=== PATIENT | female | born 2000 | race Caucasian/White ===

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

== ENCOUNTER 2020-03-24 10:22 | Emergency (ER) | payer MEDICAID ==
[~2020-03-24] VITALS: Ht 162.6 cm; Wt 81.7 kg
--- OUTSIDE RECORDS SUMMARY | ~2020-03-24 | XMS | Encounter Summary ---
Demographics + + + | Address | [address] | | | [address] | | | [place] [address] | + + + | Home Phone | | + + + | Preferred Language | Unknown | + + + | Marital Status | Single | + + + | Gnosticist Affiliation | Unknown | + + + | Race | White | + + + | Ethnic Group | Not or | + + + Author + + + | Author | [facility] | + + + | Organization | [facility] | + + + | Address | Unknown | + + + | Phone | Unavailable | + + + Support + + + + + | Name | Relationship | Address | Phone | + + + + + | Jeanine Stallworth | ECON | [place] [address] | | | | | [place] [address] | | + + + + + Care Team Providers + +------+ + | Care Mobile Developer Name | Role | Phone | + +------+ + | Sophie See MD | PCP | | + +------+ + Reason for Visit + + + | Reason | Comments | + + + | New patient | | | consultation | | + + + | Examination Of Skin | pt here for a changing mole on her neck | + + + Encounter Details +--------+---------+ + + + | Date | Type | Department | Care Team | Description | +--------+---------+ + + + | 01/19/ | Office | Dermatology | Sergio Perales MD | Congenital nevus | | 2015 | Visit | Pediatrics at [facility] | [address] | (Primary Dx) | | | | [address] | [place], [place] | | | | | [place] | [address] | | | | | [facility], | [phone] | | | | | [address] [place] [address] | | | | | | [place], [place] | | | | | | [address] | | | | | | [phone] | | | +--------+---------+ + + + Social History + +-------+ +--------+------+ | Tobacco Use | Types | Packs/Day | Years | Date | | | | | Used | | + +-------+ +--------+------+ | Never Assessed | | | | | + +-------+ +--------+------+ + + + | Sex Assigned at | Date Recorded | | | | + + + | Not on file | | + + + + + + + | Job Start Date | Occupation | Industry | + + + + | Not on file | Not on file | Not on file | + + + + + + + + | Travel History | Travel Start | Travel End | + + + + + + | No recent travel history available. | + + documented as of this encounter Patient Instructions Patient Instructions Genaro Limon MD - 01/19/2015 2:20 PM PDTDry skin care: Bathing can be beneficial (baths are better than showers to allow water to soak back into t he skin), if harsh cleansers are avoided and emollient such as a cream or ointment type of m oisturizer is applied to the skin immediately afterward to seal in the moisture. [place], fra grance-free products are in general preferred to minimize risk of irritation and/or developm ent of allergic contact dermatitis. Examples of such cleansers include:cetaphil cleanser, V anicream, Dove bar and plain glycerin bar. Examples of moisturizers include: plain white pe trolatum (Vaseline ointment), Vanicream, Cerave cream, Cetaphil cream, Aveeno cream, Aquapho r, reich butter with jojoba oil, coconut oil, sunflower seed oil. Sun protection for kids: Children are recommended to avoid the sun with physical cover-ups such as umbrellas, hats, blankets, long-sleeves, hats and avoiding being outdoors for extended activity between 10 am and 4 pm as possible, as first line against damage from UV. Hats with broad-brims or bonnets, and chin straps are most beneficial and practical. Examp les of brands: Alf, Friday, www.Glopho. Remember that the sun is "stongest" in terms of UVB in mid/late February, coincident with summe r solice, so be extra careful from early January until May, regardless of temperature an d/or cloud cover. Rash guards/ swim shirts are highly recommended for swimming. Sunscreens can be added to the above measures to any exposed skin, per the [place] [employer] and Centers for Disease Control and Prevention. Chemical sunscreens can be i rritating, especially to young children or/or those with sensitive skin/eczema. Look for zi nc oxide and titanium dioxide as the active ingredients with SPF 30 or greater. For childre n 2 years of age and younger, the only active sunscreen ingredients should be zinc oxide and titanium dioxide. Reapply sunscreen to skin every 2 hours while outside, more frequently a fter sweating and always after swimming. Examples: Neutrogena's "For Baby Faces" or "Sensitive Skin", Aveeno "Active Naturals", (a [employer] drugstore, most citizenmade), Vanicream (on-lineXercise4less), Lizbet sunscreen ([employer]), ThinkBaby. Older children may prefer thinner formulations in sales advisor lotions or gels. Be sure to look for broad spectrum UVA/UVB coverage, again with SPF 30 or greater. Example: Neutrogena's "Dry Touch" line. If you have any questions regarding the care of your child: Please call our clinic at . Leave a message that includes best times and dat ne number to reach you, and one of our medical assistants will contact you within the next . If you need refills of medication: Please contact your pharmacy directly. documented in this encounter Progress Notes Sergio Perales MD - 01/19/2015 9:06 PM PDTI saw and evaluated the patient. I agree with debbie arias findings and the plan of care as documented in the resident s note. Sergio Perales MD DERMATOLOGY PEDIATRICS AT [address] Mailcode: Op06 [place] [address] Genaro Kay MD - 01/19/2015 2:18 PM PDT PEDIATRIC DERMATOLOGY NEW PATIENT VISIT, HISTORY AND PHYSICAL CHIEF COMPLAINT: skin lesion HISTORY OF PRESENT ILLNESS: Iraida Stallworth is a 14 y.o. female who presents for evaluation of a pigmented skin lesio n on L anterior neck. Notes it has been present since . In puberty has become slightly darker and more raised. Occasionally itchy and will rub against her necklaces and shirt hussain ars. No bleeding or pain. No indoor tanning. No family history of melanoma. No past personal history of skin cancer or melanoma. No other skin concerns today. The patient's dermatology intake form was reviewed, signed, and dated. Her relevant PMH, F H, and SH includes: PAST MEDICAL HISTORY: No past medical history on file. FAMILY HISTORY: Relevant for: asthma and seasonal allergies SOCIAL HISTORY: Lives at home with family. MEDICATIONS: No current outpatient prescriptions on file prior to visit. No current facility-administered medications on file prior to visit. ALLERGIES: No Known Allergies REVIEW OF SYSTEMS: Please see HPI and PMH, otherwise well, and has no further skin complaints. PHYSICAL EXAMINATION: There were no vitals taken for this visit. Well-developed, well-nourished female in no acute distress. Awake, alert. A complete skin examination was performed including the scalp, face, eyelids, ears, lips, n yue, chest, back, abdomen, buttocks, bilateral arms and legs, bilateral hands and feet, and nails. Findings were within normal limits except for the following: -L anterior neck with 4 mm papillomatous dark brown papule. Non concerning dermatoscopic e xam. ASSESSMENT AND PLAN: 1) Small Congenital nevus, L anterior neck. Itchy and rubs against necklaces. Not interest ed in removal at this time. -will decide by April if she desires excision and will call; they have to be in [facility] in June anyway and could schedule for that time RTC: SOUMYA Limon MD DERMATOLOGY PEDIATRICS AT [address] Mail[address]: [address] [place] [address] documented in this encou nter Plan of Treatment Not on filedocumented as of this encounter Visit Diagnoses + + | Diagnosis | + + | Congenital nevus - Primary Benign neoplasm of skin, site unspecified | + + documented in this encounter
--- OUTSIDE RECORDS SUMMARY | ~2020-03-24 | XMS | Encounter Summary ---
Demographics + + + | Address | [address] | | | [address] | | | [place] [address] | + + + | Home Phone | | + + + | Preferred Language | Unknown | + + + | Marital Status | Single | + + + | Tenriism Affiliation | Unknown | + + + | Race | White | + + + | Ethnic Group | Not or | + + + Author + + + | Author | [facility] | + + + | Organization | [facility] | + + + | Address | Unknown | + + + | Phone | Unavailable | + + + Support + + + + + | Name | Relationship | Address | Phone | + + + + + | Jeanine Stallworth | ECON | [address] [address] | | | | | [place] [address] | | + + + + + Care Team Providers + +------+ + | Care Marketing Support Coordinator Name | Role | Phone | + [...] | 2015 | Visit | Pediatrics at [facility] | [address] | (Primary Dx) | | | | [address] | [place], [place] | | | | | [place] | [address] | | | | | [facility], | [phone] | | | | | [address] [place] [address] | | | | | | [place], [place] | | | | | | [address] | | | | | | [phone] | | | +--------+---------+ + + + [...] immediately afterward to seal in the moisture. [place], fra grance-free products are in general preferred [...] practical. Examp les of brands: Alf, Friday, www.NeoDiagnostix. Remember that the sun is "stongest" in terms of UVB in mid/late February, coincident with summe r solice, so be extra careful from early January until May, regardless of temperature an d/or cloud cover. Rash guards/ swim shirts are highly recommended for swimming. Sunscreens can be added to the above measures to any exposed skin, per the [place] [employer]s and Centers for Disease [...] or "Sensitive Skin", Aveeno "Active Naturals", (a [employer] drugstore, most [employer]), Vanicream (on-lineIssue), Lizbet sunscreen ([employer]), ThinkBaby. Older children may prefer thinner formulations in pastry baker lotions or gels. Be sure to look [...] note. Sergio Perales MD DERMATOLOGY PEDIATRICS AT [address] Mailcode: [address] [place] [address] Genaro Kay MD - 01/19/2015 [...] will call; they have to be in [facility] in June anyway and could schedule for that time RTC: SOUMYA Limon MD DERMATOLOGY PEDIATRICS AT [address] Mailcode: [address] [place] [address] documented in this encou nter Plan of Treatment Not on filedocumented as of this encounter Visit Diagnoses + + | Diagnosis | + + | Congenital nevus - Primary Benign neoplasm of skin, site unspecified | + + documented in this encounter
--- OUTSIDE RECORDS SUMMARY | ~2020-03-24 | XMS | Clinical Summary ---
Demographics + + + | Address | [address] | | | [address] | | | [place] [address] | + + + | Home Phone | | + + + | Preferred Language | Unknown | + + + | Marital Status | Single | + + + | Holiness Affiliation | Unknown | + + + | Race | White | + + + | Ethnic Group | Not or | + + + Author + + + | Author | [facility] | + + + | Organization | [facility] | + + + | Address | Unknown | + + + | Phone | Unavailable | + + + Support + + + + + | Name | Relationship | Address | Phone | + + + + + | Jeanine Stallworth | ECON | [address] [address] | | | | | [place] [address] | | + + + + + Care Team Providers + +------+ + | Care Staff Radiation Therapist Name | Role | Phone | + +------+ + | Sophie See MD | PCP | | + +------+ + Source Comments WINSTON is fully live on both [facility] and [facility] Allergies No Known Allergies Medications No known medications Active Problems + + + | Problem | Noted Date | + + + | Congenital nevus | 01/19/2015 | + + + Social History + +-------+ [...] recent travel history available. | + + Last Filed Vital Signs Not on file Plan of Treatment + + + + + | Health Maintenance | Due Date | Last Done | Comments | + + + + + | Influenza (Flu) | | | | | vaccination (#1) | 9 | | | + + + + + | Pneumococcal | Aged Out | | No longer eligible | | vaccination | | | based on patient's | | | | | age to complete this | | | | | topic | + + + + + Results Not on filefrom Last 3 Months Insurance + +--------+ +--------+-------+---------+--------+ | Payer | Benefi | Subscriber | Effect | Phone | Address | Type | | | t Plan | ID | [place] | | | | | | / | | Dates | | | | | | Group | | | | | | + +--------+ +--------+-------+---------+--------+ | OCCUPATIONAL HEALTH PROFESSIONAL MEDICAID | OCCUPATIONAL HEALTH PROFESSIONAL | xxxxxxxx | 03/15/20 | | | Medica | | | [place] | | 14-Pre | | | id | | | [place] | | sent | | | | + +--------+ +--------+-------+---------+--------+ + +--------+ +--------+ + + | Guarantor Name | Accoun | Relation to | Date | Phone | Billing Address | | | t Type | Patient | of | | | | | | | | | | + +--------+ +--------+ + + | JEANINE STALLWORTH | Person | Parent [birth year] | [address] | | | al/Fam | | 1970 | [phone] | | | emily | | | 5 (Home) | [place] [address] | + +--------+ +--------+ + +"
--- OUTSIDE RECORDS SUMMARY | ~2020-03-24 | XMS | Clinical Summary ---
Demographics + + + | Address | [address] | | | [address] | | | [place] [address] | + + + | Home Phone | | + + + | Preferred Language | Unknown | + + + | Marital Status | Single | + + + | Episcopal Affiliation | Unknown | + + + | Race | White | + + + | Ethnic Group | Not or | + + + Author + + + | Author | [facility] | + + + | Organization | [facility] | + + + | Address | Unknown | + + + | Phone | Unavailable | + + + Support + + + + + | Name | Relationship | Address | Phone | + + + + + | Jeanine Stallworth | ECON | [address] | | | | | [place] [address] | | + + + + + Care Team Providers + +------+ + | Care Continuing Education Specialist Name | Role | Phone | + +------+ + | Sophie See MD | PCP | | + +------+ + Source Comments WINSTON is fully live on both [facility] and [facility] InPatient.[facility] Allergies No Known Allergies Medications No known [...] | | | + +--------+ +--------+-------+---------+--------+ | SUSTAINABLE COMMUNITIES DESIGNER MEDICAID | SUSTAINABLE COMMUNITIES DESIGNER | xxxxxxxx | 03/15/20 | | | [...] | | [address] (Home) | [place] [address] | + +--------+ +--------+ + +"
[~2020-03-24 10:22] MED LIST: PRENATABS RX T1 EACH PO; TUMS200 MG PO; TYLENOL325 MG PO
[2020-03-24] MEDS ORDERED: IBU400 MG (10:39)
== END 2020-03-24 11:04 | disposition home or self-care (01) ==
LOC: ED 10:22
DX: S16.1XXA Strain of muscle, fascia and tendon at neck level, initial encounter (principal); X58.XXXA Exposure to other specified factors, initial encounter
CPT/HCPCS: 96372; 99283; J1885

== ENCOUNTER 2021-06-26 00:04 | Inpatient (IN) | payer OTHER ==
[~2021-06-26] VITALS: Ht 160 cm; Wt 92.5 kg
[~2021-06-26 00:04] MED LIST changes: +IBU400 MG
--- NOTE | 2021-06-27 08:55 | PR ---
[facility] [address] [facility] [address] [place], [place] [address] Signed PP Progress Notes Datetime Report Generated by CPN: 06/27/2021 08:55 SUBJECTIVE: [id number] Pain: Within Normal Limits Vital Signs: [id number] Vital Signs: Reviewed; Within Normal Limits Cardiovascular: Not Done Respiratory: Not Done Abdomen/Uterus: Abnormal Lochia: Normal Vulva/Perineum: Not Done Breasts: Not Done CVA Tenderness: Not Done Extremities: Normal Incision: Not Applicable Progress: Not Applicable Exam Comments: Fundus firm, NT @ U-3 H/H 9.3/28.4, WBC 16.7, plat 249k IMPRESSION/PLAN/PROCEDURES: [id number] Impression: Normal Progression Plan: Continue Present Management Other Plans: continue observation of baby Procedures: None Progress Notes: Doing well but given the baby needing CPAP yesterday I think it reasonable to continue observation with D/C home tomorrow. Pt is amenable to this. Signing Physician: Michell Borrero MD Copies: ~ *Electronically Signed* 06/27/21 0855 MICHELL BORRERO MD PATIENT NAME: PARKER KAUR PROGRESS NOTE DATE OF : 98 PHYSICIAN: MICHELL BORRERO MD RPT #: [id number] REPORT IS CONFIDENTIAL AND NOT TO BE RELEASED WITHOUT AUTHORIZATION
--- NOTE | 2021-06-28 07:37 | PR ---
[facility] [address] [facility] [place], [place] [address] Signed PP Progress Notes Datetime Report Generated by CPN: 06/28/2021 07:37 SUBJECTIVE: [id number] Pain: Within Normal Limits Nausea/Vomiting: Denies Vital Signs: [id number] Vital Signs: Reviewed; Within Normal Limits Cardiovascular: Not Done Respiratory: Not Done Abdomen/Uterus: Abnormal Lochia: Normal Vulva/Perineum: Not Done Breasts: Not Done CVA Tenderness: Not Done Extremities: Normal Incision: Not Applicable Progress: Not Applicable Exam Comments: Fundus firm, NT @ U-3 IMPRESSION/PLAN/PROCEDURES: [id number] Impression: Normal Progression Plan: Discharge Other Plans: continue observation of baby Procedures: None Progress Notes: Doing well. She is ready for D/C. Signing Physician: Michell Borrero MD Copies: ~ *Electronically Signed* 06/28/21 0737 MICHELL BORRERO MD PATIENT NAME: PARKER KAUR PROGRESS NOTE DATE OF : 98 PHYSICIAN: MICHELL BORRERO MD RPT #: [id number] REPORT IS CONFIDENTIAL AND NOT TO BE RELEASED WITHOUT AUTHORIZATION
== END 2021-06-28 10:43 | disposition home or self-care (01) | DRG 806 ==
LOC: FBC 00:04
PROVIDERS: ADMIT Obstetrics & Gynecology; ATTEND Obstetrics & Gynecology
PROC: 10E0XZZ Delivery of Products of Conception, External Approach (ICD-10-PCS; principal; 2021-06-26)
PROC: 00HU33Z Insertion of Infusion Device into Spinal Canal, Percutaneous Approach (ICD-10-PCS; 2021-06-26)
PROC: 3E0R3BZ Introduction of Anesthetic Agent into Spinal Canal, Percutaneous Approach (ICD-10-PCS; 2021-06-26)
DX: O24.420 Gestational diabetes mellitus in childbirth, diet controlled (principal); D62 Acute posthemorrhagic anemia; Z37.0 Single live birth; Z3A.39 39 weeks gestation of pregnancy; Z67.40 Type O blood, Rh positive; Z20.822 Contact with and (suspected) exposure to COVID-19
CPT/HCPCS: 01960; 82803; 85027; 94660; A9270; J2590; J2795; J3010

== ENCOUNTER 2024-05-17 06:00 | Inpatient (IN) | payer OTHER ==
[~2024-05-17 06:00] MED LIST changes: +CALCIUM CARBONATE 500 MG CHEW PO PRN; +LACTATED RINGER'S 1,000 ML IV SCH; +MAGNESIUM HYDROXIDE/AL HYDROX 30 ML CUP PO PRN; +SALINE LOCK FLUSH 5 ML SYR IV SCH; +miSOPROStoL 25 MCG TAB PV SCH
[2024-05-17] MEDS ORDERED: OXYTOCIN/DEXTROSE 5% 20 UNITS/100 ML BAG IV SCH (06:15)
[2024-05-17] MEDS ORDERED: LIDOCAINE 2% VISCOUS 6 ML SYR TOP ONE ×3 (06:15→19:15)
[2024-05-17] MEDS ORDERED: miSOPROStoL 25 MCG TAB PV SCH (06:15)
[2024-05-17] MEDS ORDERED: LACTATED RINGER'S 1,000 ML IV PRN (06:30)
[2024-05-17 06:57] LABS: AMPHETAMINES, URINE NEGATIVE (NEGATIVE); BARBITURATES, URINE NEGATIVE (NEGATIVE); BENZODIAZEPINE, URINE NEGATIVE (NEGATIVE); BUPRENORPHINE, URINE NEGATIVE (NEGATIVE); CANNABINOID, URINE NEGATIVE (NEGATIVE); COCAINE, URINE NEGATIVE (NEGATIVE); ECSTASY, URINE NEGATIVE (NEGATIVE); FENTANYL, URINE NEGATIVE (NEGATIVE); METHADONE, URINE NEGATIVE (NEGATIVE); OPIATES, URINE NEGATIVE (NEGATIVE); OXYCODONE, URINE NEGATIVE (NEGATIVE); PHENCYCLIDINE, URINE NEGATIVE (NEGATIVE)
[2024-05-17 07:03] LABS: HEMOGLOBIN 11.4 g/dL (12.0-18.0); MCH 27.8 (27-36); MCHC 32.4 g/dl (30-36); MCV 85.7 fl (81-99); RBC 4.09 M/ul (4.3-5.7); RDW 16.1 (10.5-15.0)
[2024-05-17 07:37] LABS: ABO O; RH POSITIVE
[2024-05-17 07:38] LABS: ANTIBODY SCREEN NEGATIVE
[2024-05-17] MEDS ORDERED: ROPIVACAINE 0.2% 200 ML BAG ONE (09:04)
[2024-05-17] MEDS ORDERED: LACTATED RINGER'S 500 ML IV PRN (09:45)
[2024-05-17] MEDS ORDERED: ROPIVACAINE 0.2% 200 ML BAG EPIDURAL SCH (09:45)
[2024-05-17] MEDS ORDERED: ePHEDrine sulfate 5 MG/ML SYRINGE IV PRN (09:45)
[2024-05-17] MEDS ORDERED: LACTATED RINGER'S 2,000 ML IV ONE (09:45)
[2024-05-17] MEDS ORDERED: OXYTOCIN/0.9 % SODIUM CHLORIDE 500 ML IV ONE (12:15)
--- NOTE | 2024-05-17 12:24 | PR ---
[facility] [address] [facility] [place], [place] [address] Signed Progress Notes IP Datetime Report Generated by TEODORO: 05/17/2024 12:24 PROGRESS NOTES: [id number] Impression: Reassuring Heart Rate Procedures: Intrauterine Pressure Catheter; Sterile Vag Exam Plan: Augmentation VITAL SIGNS: [id number] Vital Signs: Reviewed; Within Normal Limits EXAM: [id number] Dilatation: 3.0 Effacement: 75 Station: -2 Contractions: q 2 to 6 min MEMBRANES: [id number] Comments: Min change (no longer as post). Will place IUPC and likely begin augmentation. FETUS A: [id number] FHR Baseline: 140 Variability: Moderate 6-25bpm Accelerations: 15X15 Decelerations: None FHR Category: Category I Presentation: Vertex Comments on Fetus A: overall reassuring FETUS B: [id number] Signing Physician: Michell Borrero MD Copies: ~ *Electronically Signed* 05/17/24 1224 MICHELL BORRERO MD PATIENT NAME: NATASHAPARKERLINDA AYALA PROGRESS NOTE DATE OF : 98 PHYSICIAN: MICHELL BORRERO MD RPT #: [id number] REPORT IS CONFIDENTIAL AND NOT TO BE RELEASED WITHOUT AUTHORIZATION
[2024-05-17] MEDS ORDERED: LIDOCAINE HCL 2% 5 ML SDV ONE (13:56)
[2024-05-17] MEDS ORDERED: dexmedeTOMIDine HCl 200 MCG/2 ML VIAL ONE (13:56)
[2024-05-17] MEDS ORDERED: ePHEDrine KIT FOR FBC IV ONE (14:53)
--- NOTE | 2024-05-17 16:46 | PR ---
[facility] [address] [place], [place] [address] Signed Progress Notes IP Datetime Report Generated by TEODORO: 05/17/2024 16:46 PROGRESS NOTES: [id number] Impression: Reassuring Heart Rate Procedures: Intrauterine Pressure Catheter; Sterile Vag Exam Plan: Anesthesia Consult Other Plans: replace IUPC, position changes VITAL SIGNS: B1807057 Vital Signs: Reviewed; Within Normal Limits EXAM: [id number] Dilatation: 4.5 Effacement: 90 Station: -2 Contractions: not picking up well MEMBRANES: [id number] Comments: Not very comfortable currently with low pelvic and back pain. Ctx not picking up well either. Will replace IUPC now and ask anesthesia to reevaluate her pain management. Will also try different positions for her labor. FETUS A: [id number] FHR Baseline: 140 Variability: Moderate 6-25bpm Accelerations: 15X15 Decelerations: Early; Variable FHR Category: Category II Presentation: Vertex Comments on Fetus A: overall reassuring FETUS B: [id number] Signing Physician: Michell Borrero MD Copies: ~ *Electronically Signed* 05/17/24 1646 MICHELL BORRERO MD PATIENT NAME: PARKER KAUR PROGRESS NOTE DATE OF : 98 PHYSICIAN: MICHELL BORRERO MD RPT #: [id number] REPORT IS CONFIDENTIAL AND NOT TO BE RELEASED WITHOUT AUTHORIZATION
--- NOTE | 2024-05-17 17:19 | PR ---
[facility] [address] [facility] [place], [place] [address] Signed Progress Notes IP Datetime Report Generated by TEODORO: 05/17/2024 17:19 PROGRESS NOTES: [id number] Impression: Normal Progression of Labor Procedures: Scalp Electrode; Sterile Vag Exam Plan: Continue Present Management Other Plans: replace IUPC, position changes VITAL SIGNS: [id number] Vital Signs: Reviewed; Within Normal Limits EXAM: [id number] Dilatation: 7.0 Effacement: 90 Station: -2 Contractions: not picking up well MEMBRANES: [id number] Comments: Progressing well with the change in position. Anesthesia here as well. IV replaced as came out during her repositioning. Will continue close observation. FETUS A: [id number] FHR Baseline: 140 Variability: Minimal - >Undetectable to <=5bpm Accelerations: 15X15 Decelerations: None FHR Category: Category II Presentation: Vertex Comments on Fetus A: overall reassuring FETUS B: [id number] Signing Physician: Michell Borrero MD Copies: ~ *Electronically Signed* 05/17/24 1719 MICHELL BORRERO MD PATIENT NAME: PARKER KAUR PROGRESS NOTE DATE OF : 98 PHYSICIAN: MICHELL BORRERO MD RPT #: [id number] REPORT IS CONFIDENTIAL AND NOT TO BE RELEASED WITHOUT AUTHORIZATION
--- NOTE | 2024-05-17 17:50 | PR ---
[facility] [address] [facility] [place], [place] [address] Signed Progress Notes IP Datetime Report Generated by TEODORO: 05/17/2024 17:50 PROGRESS NOTES: [id number] Impression: Normal Progression of Labor Procedures: Sterile Vag Exam Plan: Continue Present Management Other Plans: replace IUPC, position changes VITAL SIGNS: [id number] Vital Signs: Reviewed; Within Normal Limits EXAM: [id number] Dilatation: 8.0 Effacement: 90 Station: -2 Contractions: q 1 to 2 min MEMBRANES: [id number] Comments: Much more comfortable with some progress. Will change positions. Will decrease pit again as well. FETUS A: [id number] FHR Baseline: 140 Variability: Minimal - >Undetectable to <=5bpm Accelerations: 15X15 Decelerations: Early FHR Category: Category II Presentation: Vertex Comments on Fetus A: overall reassuring FETUS B: [id number] Signing Physician: Michell Borrero MD Copies: ~ *Electronically Signed* 05/17/24 8328 MICHELL BORRERO MD PATIENT NAME: PARKER KAUR JAMIE PROGRESS NOTE DATE OF : [birth year] PHYSICIAN: MICHELL BORRERO MD RPT #: [id number] REPORT IS CONFIDENTIAL AND NOT TO BE RELEASED WITHOUT AUTHORIZATION
[2024-05-17] MEDS ORDERED: TRANEXAMIC ACID IN NACL,ISO-OS 0 ML IV ONE (18:41)
[2024-05-17] MEDS ORDERED: OXYCODONE HCL 5 MG TAB PO PRN (19:15)
[2024-05-17] MEDS ORDERED: CALCIUM CARBONATE 500 MG CHEW PO PRN (19:15)
[2024-05-17] MEDS ORDERED: BENZOCAINE 60 ML AEROSOL TOP PRN (19:15)
[2024-05-17] MEDS ORDERED: ACETAMINOPHEN 325 MG TAB PO PRN (19:15)
[2024-05-17] MEDS ORDERED: MAGNESIUM HYDROXIDE 30 ML UDC PO PRN (19:15)
[2024-05-17] MEDS ORDERED: MAGNESIUM HYDROXIDE/AL HYDROX 30 ML CUP PO PRN (19:15)
[2024-05-17] MEDS ORDERED: miSOPROStoL 200 MCG TAB PO ONE (19:15)
[2024-05-17] MEDS ORDERED: HYDROCORTISONE ACETATE 25 MG SUPP PR PRN (19:15)
[2024-05-17] MEDS ORDERED: HYDROCODONE/ACETA 5/325 TAB PO PRN (19:15)
[2024-05-17] MEDS ORDERED: OXYCODONE/APAP 5/325 TAB PO PRN (19:15)
[2024-05-17] MEDS ORDERED: ondansetron HCL 4 MG/2 ML VIAL IV ONE (19:15)
[2024-05-17] MEDS ORDERED: DIPHENOXYLATE/ATROPINE 1 EA TAB PO ONE (19:15)
[2024-05-17] MEDS ORDERED: WITCH HAZEL/GLYCERIN 1 EA PAD TOP PRN (19:15)
[2024-05-17] MEDS ORDERED: IBUPROFEN 600 MG TAB PO PRN (19:15)
[2024-05-17] MEDS ORDERED: OXYTOCIN/0.9 % SODIUM CHLORIDE 500 ML IV SCH (19:15)
[2024-05-17] MEDS ORDERED: SENNOSIDES/DOCUSATE 1 EA TAB PO SCH (21:00)
[2024-05-17 21:10] LABS: BASOPHILS 0.1 % (0-2); HEMATOCRIT 36.5 % (35.0-50.0); HEMOGLOBIN 11.9 g/dL (12.0-18.0); LYMPHOCYTES 3.9 % (24-44); MCH 27.7 (27-36); MCHC 32.6 g/dl (30-36); MONOCYTES 3.1 % (0-12); NEUTROPHILS 92.9 % (39-80); PLATELET COUNT 335 K/uL (140-440); RBC 4.29 M/ul (4.3-5.7)
[2024-05-18 05:40] LABS: HEMOGLOBIN 10.8 g/dL (12.0-18.0); MCH 27.7 (27-36); MCHC 32.6 g/dl (30-36); PLATELET COUNT 311 K/uL (140-440); RBC 3.89 M/ul (4.3-5.7); RDW 16.2 (10.5-15.0)
--- NOTE | 2024-05-18 07:15 | PR ---
[facility] [address] [facility] [place], [place] [address] Signed PP Progress Notes Datetime Report Generated by CPN: 05/18/2024 07:14 SUBJECTIVE: [id number] Pain: Within Normal Limits Pain Comments: Feels much better this morning. Nausea/Vomiting: Denies Vital Signs: [id number] Vital Signs: Reviewed; Within Normal Limits Cardiovascular: Not Done Respiratory: Not Done Abdomen/Uterus: Abnormal Lochia: Normal Vulva/Perineum: Not Done Breasts: Not Done CVA Tenderness: Not Done Extremities: Normal Incision: Not Applicable Progress: Not Applicable Exam Comments: Fundus firm, NT @ U-1. last pm 11.9/36.5, WBC 24.7, plat 335k this am 10.8/33, WBC 21.1, 311k IMPRESSION/PLAN/PROCEDURES: [id number] Impression: Normal Progression Other Impression: temp increased last pm Plan: Continue Present Management Procedures: None Progress Notes: Doing well this am. She had an elevated temp last pm which has since resolved though WBC is elevated. The temp may be secondary to the [employer] rec'd pp. She has no other localizing symptoms. Will continue observation today. Signing Physician: Michell Borrero MD Copies: ~ *Electronically Signed* 05/18/24 0714 MICHELL BORRERO MD PATIENT NAME: PARKER KAUR PROGRESS NOTE DATE OF : [birth year] PHYSICIAN: MICHELL BORRERO MD RPT #: [id number] REPORT IS CONFIDENTIAL AND NOT TO BE RELEASED WITHOUT AUTHORIZATION
[2024-05-19 05:41] LABS: BASOPHILS 1.7 % (0-2); EOSINOPHILS 1.4 % (0-6); HEMATOCRIT 31.3 % (35.0-50.0); HEMOGLOBIN 10.2 g/dL (12.0-18.0); LYMPHOCYTES 33.6 % (24-44); MCH 27.8 (27-36); MCHC 32.7 g/dl (30-36); MCV 85.2 fl (81-99); MONOCYTES 5.3 % (0-12); PLATELET COUNT 272 K/uL (140-440); RBC 3.67 M/ul (4.3-5.7)
--- NOTE | 2024-05-19 08:36 | PR ---
[facility] [address] [facility] [place], [place] [address] Signed PP Progress Notes Datetime Report Generated by CPN: 05/19/2024 08:36 SUBJECTIVE: [id number] Pain: Within Normal Limits Pain Comments: Feels great Nausea/Vomiting: Denies Vital Signs: [id number] Vital Signs: Reviewed; Within Normal Limits Cardiovascular: Not Done Respiratory: Not Done Abdomen/Uterus: Abnormal Lochia: Normal Vulva/Perineum: Not Done Breasts: Not Done CVA Tenderness: Not Done Extremities: Normal Incision: Not Applicable Progress: Not Applicable Exam Comments: Fundus firm, NT @ U-2. H/H 10.2/31.3, WBC 11.1, plat 272k IMPRESSION/PLAN/PROCEDURES: [id number] Impression: Normal Progression Other Impression: WBC down to normal range Plan: Discharge Procedures: None Progress Notes: Doing well. She is ready for D/C. Signing Physician: Michell Borrero MD Copies: ~ *Electronically Signed* 05/19/24 0836 MICHELL BORRERO MD PATIENT NAME: PARKER KAUR JAMIE PROGRESS NOTE DATE OF : [birth year] PHYSICIAN: MICHELL BORRERO MD RPT #: [id number] REPORT IS CONFIDENTIAL AND NOT TO BE RELEASED WITHOUT AUTHORIZATION
== END 2024-05-19 10:25 | disposition home or self-care (01) | DRG 807 ==
LOC: FBC 06:00
PROVIDERS: ADMIT Obstetrics & Gynecology; ATTEND Obstetrics & Gynecology
PROC: 10E0XZZ Delivery of Products of Conception, External Approach (ICD-10-PCS; principal; 2024-05-17)
PROC: 0KQM0ZZ Repair Perineum Muscle, Open Approach (ICD-10-PCS; 2024-05-17)
PROC: 10907ZC Drainage of Amniotic Fluid, Therapeutic from Products of Conception, Via Natural or Artificial Opening (ICD-10-PCS; 2024-05-17)
PROC: 3E0R3BZ Introduction of Anesthetic Agent into Spinal Canal, Percutaneous Approach (ICD-10-PCS; 2024-05-17)
PROC: 00HU33Z Insertion of Infusion Device into Spinal Canal, Percutaneous Approach (ICD-10-PCS; 2024-05-17)
DX: O66.0 Obstructed labor due to shoulder dystocia (principal); Z37.0 Single live birth; O24.429 Gestational diabetes mellitus in childbirth, unspecified control; Z3A.39 39 weeks gestation of pregnancy; Z88.8 Allergy status to other drugs, medicaments and biological substances; Z91.048 Other nonmedicinal substance allergy status; Z79.899 Other long term (current) drug therapy
CPT/HCPCS: 01960; 36415; 80307; 85025; 85027; 85060; 86850; 86900; 86901; A9270; J2001; J2405; J2590; J2795; J7121